=== PATIENT | male | born 1970 | race Caucasian/White ===

== ENCOUNTER 2017-03-28 11:13 | Emergency (ER) | payer OTHER, MEDICAID ==
[~2017-03-28] VITALS: Ht 187.9 cm; Wt 97.5 kg
[2017-03-28] MEDS ORDERED: DOXYCYCLINE100 M3 PO (13:57)
== END 2017-03-28 14:12 | disposition home or self-care (01) ==
LOC: ED 11:13 → EDBD 11:18 → ED 11:18
DX: S91.111A Laceration without foreign body of right great toe without damage to nail, initial encounter (principal); S90.414A Abrasion, right lesser toe(s), initial encounter; F17.200 Nicotine dependence, unspecified, uncomplicated; Z88.0 Allergy status to penicillin; Z88.6 Allergy status to analgesic agent; Z91.030 Bee allergy status; Z79.01 Long term (current) use of anticoagulants; W22.8XXA Striking against or struck by other objects, initial encounter; Y93.89 Activity, other specified; Y92.9 Unspecified place or not applicable; Y99.9 Unspecified external cause status